=== PATIENT | male | born 1940 | race Caucasian/White ===

== ENCOUNTER 2023-02-16 08:10 | Outpatient (REF) | payer BC, SELFPAY ==
--- NOTE | ~2023-02-16 | PE_ITS ---
EXAMINATION: Fluorine-18 FDG PET/CT Scan CLINICAL INDICATION: Initial treatment management. 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 PROCEDURE: 60 minutes following the intravenous administration of 16.7 mCi of fluorine 18 FDG, images from the base of the skull to the mid thighs were obtained using a combined PET/CT scanner with CT scan based attenuation correction. No intravenous contrast was administered. Transverse, coronal, sagittal, and volume reconstruction projections were obtained. The patient's blood glucose as determined by a finger stick, was 97 mg/dl immediately prior to injection. The radiotracer was injected intravenously through right antecubital superficial vein, without any complications. Total CT exam dose-length product 602.52 mGy-cm * These CT images were obtained using dose optimization techniques as appropriate, variously including the following: Automated exposure control * Adjustment of mA and/or kV according to patient size (this includes techniques or standardized protocols for targeted exams where dose is matched to indication/reason for exam; i.e. extremities or head) * Use of iterative reconstruction technique COMPARISON: Outside CT of the soft tissue neck and CT of the chest done on 12/12/2022. FINDINGS: NECK AND VISUALIZED HEAD: No definite FDG avidity is identified in the region of the hard palate. Asymmetric increase FDG avidity however is present at the level of the right pterygopalatine fissure and adjacent part of the infratemporal fossa abutting the posterior aspect of the right maxillary sinus and adjacent musculature with SUV max of 5.5 (18/267). This could be related to positioning. Clinical correlation is recommended. There are no definite FDG avid cervical lymphadenopathy present. Physiologic radiotracer activity is noted in the region of the larynx. THORAX: There are no FDG avid lung nodule and/or mass or mediastinal or hilar or axillary or internal mammary lymphadenopathy or pleural or pericardial effusion. ABDOMEN AND PELVIS: Nonspecific mild FDG avidity within the stomach with SUV max of 6.0 (127/267), may represent inflammatory changes. Please correlate clinically. Mild heterogeneous increased FDG avidity is noted at both lobes of the liver without any definite CT correlate with SUV max of 4.0 (131/267), and SUV max of 4.6 (146/267) for which clinical, lab correlation and follow-up multiphasic MRI as appropriate may be considered for further clarification. The findings potentially could be artifactual related to breathing artifact with adjacent bowel activity projecting over the liver. Multiple calcified gallstones are present, otherwise the biliary tract appears unremarkable. No FDG avid disease within the spleen or adrenal glands. The pancreas appear unremarkable. Physiologic radiotracer activities are present within the kidneys, both ureters and the bladder. Evaluation of the pelvis is technically limited given the presence of extensive intense bladder activity and presence of bilateral metallic hip prosthesis. MUSCULOSKELETAL: No definite suspicious focal osseous FDG avid disease. Partial opacification of the right mastoid air cells, consistent with mild mastoiditis. 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 VASCULAR: Calcific atherosclerotic disease of the aorta including coronary artery calcifications are present. No evidence of aneurysm. SUV max OF MEDIASTINAL BLOOD POOL: 2.7 SUV max OF LIVER: 3.0 PET/PET CT fusion skull to thigh IMPRESSION: 1. Asymmetric increased FDG avidity is noted at the level of the right-sided pterygopalatine fissure and adjacent part of the infratemporal fossa abutting the posterior aspect of the right maxillary sinus and the adjacent musculature with SUV max of 5.5. Clinical correlation is recommended. This could be related to positioning and/or misregistration artifact. 2. No FDG avid cervical lymphadenopathy or FDG avid suspicious lung nodule and/or mass or adenopathy within the chest and axilla. 3. Nonspecific mild FDG avidity within the stomach with SUV max of 6.0, may represent inflammatory changes. 4. Heterogeneous FDG avidity is seen within both lobes of the liver. The findings potentially could be artifactual related to breathing artifact and/or misregistration artifact with adjacent bowel activity projecting over the liver. 5. Multiple calcified gallstones. 6. No suspicious FDG avid osseous disease. Partial opacification of the right mastoid air cells. 7. Calcific atherosclerotic disease including coronary artery calcifications without aneurysm.
== END 2023-02-16 08:11 | disposition home or self-care (01) ==
LOC: HO.PET 08:10
PROVIDERS: PCP Internal Medicine; Visit Provider Radiology Radiation Oncology
DX: Z13.89 Encounter for screening for other disorder (principal)